=== PATIENT | female | born 1990 | race Caucasian/White ===

== ENCOUNTER 2016-08-27 19:03 | Emergency (ER) | payer OTHER ==
[~2016-08-27] VITALS: Ht 170.2 cm; Wt 65.0 kg
[2016-08-27 19:09] VITALS: Ht 170.2 cm; Wt 65.0 kg
[2016-08-27] MEDS ORDERED: ONDANSETRON (ODT) 4 MG TAB ODT STA (19:36)
--- NOTE | 2016-08-27 19:54 | ERD ---
ER Documentation Chief Complaint Date/Time DATE: 08/27/16 TIME: 19:42 Chief Complaint Pt reports fall from standing with +LOC, pt tenderness to neck, back pain HPI 26 year old female presents here in the emergency department for complaint of lower back pain, neck pain, headache, dizziness, right ankle pain after falling today. Patient was walking, tripped on a can, landed on the back. Patient describes the pain as throbbing pain, 6/10 scale, worse upon movement of the affected joints. Shouldn't denies any numbness or tingling. Patient denies any deformity. Patient is unable to move the neck because of pain. Patient denies taking any medications to but symptoms. Patient denies any loss of consciousness. Patient cannot remember the what happened. ROS All systems reviewed and are negative except as per history of present illness. Medications Home Meds Reported Medications [none] Unknown Strength No Conflict Check 08/27/16 Allergies Allergies: Coded Allergies: No Known Allergy (Unverified , 08/27/16) PMhx/Soc Medical and Surgical Hx: pt denies Medical Hx, pt denies Surgical Hx History of Surgery: No (DENIES MEDICAL AND SURGICAL HX.) Hx Alcohol Use: No Hx Substance Use: No Hx Tobacco Use: No Smoking Status: Never smoker FmHx Family History: No coronary disease, No diabetes, No other Physical Exam Vitals Vital Signs Date Time Temp Pulse Resp B/P Pulse Ox O2 Delivery O2 Flow Rate FiO2 08/27/16 19:09 98.8 105 24 138/98 98 Physical Exam GENERAL: The patient is well developed and appropriate for usual state of health, in no apparent distress. CHEST: Clear to auscultation bilaterally. There are no rales, wheezes or rhonchi. HEART: Regular rate and rhythm. No murmurs, clicks, rubs or gallops. No S3 or S4. ABDOMEN: Soft, nontender and nondistended. Good bowel sounds. No rebound or guarding. No gross peritonitis. No gross organomegaly or masses. No Orozco sign or McBurney point tenderness. BACK: No midline or flank tenderness. Muscle spasms noted in the paraspinal aspect of cervical and lower lumbar spine. EXTREMITIES: Able to do full range of motion of her ankle without any restriction, no tenderness on palpation on the lateral and medial malleolus, no deformity noted. Equal pulses bilaterally. There is no peripheral clubbing, cyanosis or edema. No focal swelling or erythema. Full range of motion. Grossly neurovascularly intact. NEURO: Alert and oriented. Cranial nerves 2-12 intact. Motor strength in all 4 extremities with 5/5 strength. Sensation grossly intact. Normal speech and gait. Negative pronator drift. Bilateral eyes are PERRL is intact. SKIN: There is no apparent rash or petechia. The skin is warm and dry. HEMATOLOGIC AND LYMPHATIC: There is no evidence of excessive bruising or lymphedema. No gross cervical, axillary, or inguinal lymphadenopathy. Results 24 hrs Current Medications Medications (Trade) Dose Ordered Sig/Angeles Route PRN Reason Start Time Stop Time Status Last Admin Dose Admin Morphine Sulfate (morphine) 4 mg ONCE ONCE IM 08/27/16 20:00 08/27/16 20:01 DC 08/27/16 20:03 Diazepam (Valium) 5 mg ONCE ONCE IM 08/27/16 20:00 08/27/16 20:01 DC 08/27/16 20:08 Ondansetron HCl (Zofran Odt) 4 mg ONCE STAT ODT 08/27/16 19:36 08/27/16 19:41 DC 08/27/16 20:02 Patient was given medication for pain here in emergency department, after treatment, patient verbalized feeling much better. Patient's pain is improved. Valium was given here in emergency department. Zofran was given here in emergency department. Tolerated medication well. PROCEDURE: CT Cervical Spine without contrast. CLINICAL INDICATION: Trauma. Neck pain. TECHNIQUE: Helical axial sections were obtained through the cervical spine without intravenous contrast enhancement. Sagittal and coronal reformatted images were accomplished using the data from the axial images. Total exam DLP is 450.97 mGy-cm. CTDIvol is 22.14 mGy. One or more of the following dose reduction techniques were used: Automated exposure control, adjustment of the mA and/or kV according to patient size, use of iterative reconstruction technique. COMPARISON: No prior studies are available for comparison. FINDINGS: There is normal stature and alignment of the vertebrae. There is a sagittal lucency through the left lamina of C3 seen only on image 4- 44. This may represent a nondisplaced fracture. There is no other fracture. The disk height is normal. There is no lytic or blastic lesion. The paravertebral soft tissues are normal. IMPRESSION: 1. Possible nondisplaced fracture of the left lamina of C3. As this is only visualized on 1 of the axial images, this may be due to artifact. Follow-up CT scan advised. 2. Otherwise unremarkable study. RPTAT: QQ .Albert Bunch MD, MD Date Time Electronically viewed and signed by .Albert Bunch MD, MD on 08/27/2016 21:13 .R/ CC: PASTORA GUERRERO NP PROCEDURE: CT Lumbar Spine. CLINICAL INDICATION: Trauma. Back pain. TECHNIQUE: The study was performed on a multidetector CT scanner. Spiral axial 1 mm images were obtained through the lumbar spine and reformatted at 2.5 mm slice thickness. Sagittal and coronal reformations were created from the raw axial data. The images were reviewed on a PACS workstation. Total exam DLP is July 1934 0.00 mGy-cm. CTDIvol is 9.27 mGy. One or more of the following dose reduction techniques were used: Automated exposure control, adjustment of the mA and/or kV according to patient size, use of iterative reconstruction technique. COMPARISON: No prior studies are available for comparison. FINDINGS: The vertebral bodies demonstrate normal height, alignment and osseous mineralization. There is no fracture or malalignment. The abdominal aorta is unremarkable. There is a nonobstructing 0.2 cm calculus in the upper to mid left kidney. The visualized portions of the kidneys are otherwise unremarkable. T12-L1: The disc and neuroforamina are unremarkable. L1-L2: The disc and neuroforamina are unremarkable. L2-L3: The disc and neuroforamina are unremarkable. L3-L4: The disc and neuroforamina are unremarkable. L4-L5: The disc and neuroforamina are unremarkable. L5-S1: The disc and neuroforamina are unremarkable. IMPRESSION: 1. Nonobstructing 0.2 cm calculus in the upper to mid left kidney. 2. No fracture or malalignment. 3. Otherwise unremarkable CT scan of the lumbar spine. RPTAT: QQ .Albert Bunch MD, Date Time Electronically viewed and signed by .Albert Bunch MD, on 08/27/2016 21:17 .R/ CC: PASTORA GUERRERO ROLL [employer]OUR GRINDER PROCEDURE: CT Brain without contrast. CLINICAL INDICATION: Trauma. Headache. TECHNIQUE: A CT of the brain without contrast was performed utilizing axial sections from the skull base through the vertex. The patient was scanned without intravenous contrast enhancement. Sagittal and coronal reformatted images were obtained using the data from the axial images. Total exam DLP is 720.23 mGy-cm. CTDIvol is 40.63 mGy. One or more of the following dose reduction techniques were used: Automated exposure control, adjustment of the mA and/or kV according to patient size, use of iterative reconstruction technique. COMPARISON: None available FINDINGS: There is normal omalley-white matter differentiation. The ventricles and cisterns are normal. There is no intracranial hemorrhage or space-occupying lesion. There is no skull fracture or lytic lesion. IMPRESSION: 1. Normal noncontrast CT scan of the brain. 2. No intracranial hemorrhage. RPTAT: QQ .Albert Bunch MD, Date Time Electronically viewed and signed by .Albert Bunch MD, on 08/27/2016 21:06 .R/ CC: PASTORA GUERRERO ROLL [employer] GRINDER PROCEDURE: XR Right Ankle. CLINICAL INDICATION: Trauma. Pain. TECHNIQUE: Three views of the right ankle are available for review COMPARISON: None available FINDINGS: There are no fractures. Joint relationships are maintained. Ankle mortise is intact. Bone mineralization is within normal limits. Soft tissues are unremarkable. IMPRESSION: 1. No acute abnormality. RPTAT: HMVK .Jorge Reveles MD, MD Date Time Electronically viewed and signed by .Jorge Reveles MD, on 08/27/2016 21:33 .K/ CC: PASTORA GUERRERO ROLL [employer] GRINDER Procedures/MDM After receiving patients xray report, an Trino wrap was applied on the patients right ankle. After application of the Trino wrap, patient has intact sensation and circulation on distal area of the affected joint. Patient does not complain of numbness or tingling after application of the Trino wrap. Patient tolerated procedure well. A hard collar was consistently on patient during the whole visits here in emergency department. Medical Decision Making: Patient's back pain is most likely consistent with a contusion or a strain, patient's neck pain most likely is consistent with a cervical fracture seen in the CT scan. There is no suspicion for neurovascular compromise. Patient has intact sensation and circulation of the affected extremity. There is low suspicion for septic arthritis. Patient does not have any fever. Patient's last of consciousness at the head injury consistent with a head concussion. There is low suspicion for neurological emergencies at this time since patients neurologic exam is normal. Patient did not have any altered level consciousness, vomiting, changes in balance or memory after incident. Patients CT scan of the head does not show any neurological emergencies at this time. Patient's ankle pain consistent with a sprain, no symptoms of any fractures. No symptoms of any other neurovascular compromise. X-ray does not show any fracture or dislocation. I discussed this case with my attending physician, Dr. Lamb, recommended to consult neurosurgeon, for evaluation and treatment, I spoke with , neurosurgeon on-call, will evaluate patient in the morning, patient will be admitted to the hospital for further evaluation and management. Patient's pain is controlled at this time. Patient's on the hard collar. I spoke with Dr. Paz who will admit the patient to the hospital. I spoke again with the patient, patient refuses to be admitted at this time, was to go to a different hospital. I discussed that complications including paralysis, cervical fracture complications, with this, patient continues to want to go to a different hospital, patient is signing AGAINST MEDICAL ADVICE, she signed the form with, was witnessed by the nurse, patient was advised of all the risks, patient will go via auto with boyfriend. Departure Diagnosis: Primary Impression: Head concussion Encounter type: initial encounter Loss of consciousness presence/duration: without LOC Qualified Code: S06.0X0A - Head concussion, without LOC, initial encounter Additional Impressions: Cervical spine fracture Encounter type: initial encounter Cervical vertebra fracture level: C3 Fracture type: closed Fracture morphology: unspecified fracture morphology Fracture alignment: nondisplaced Qualified Code: S12.201A - Closed nondisplaced fracture of third cervical vertebra, unspecified fracture morphology, initial encounter Ankle sprain Encounter type: initial encounter Involved ligament of ankle: unspecified ligament Laterality: right Qualified Code: S93.401A - Sprain of right ankle , unspecified ligament, initial encounter Back pain Back pain location: low back pain Chronicity: acute Back pain laterality: right Sciatica presence: without sciatica Qualified Code: M54.5 - Acute right-sided low back pain without sciatica Condition: PASTORA Cox NP Aug 27, 2016 19:52
[2016-08-27] MEDS ORDERED: DIAZEPAM 5 MG/ML SYG IM ONE (20:00)
[2016-08-27] MEDS ORDERED: morphine 10 MG INJ IM ONE (20:00)
--- NOTE | 2016-08-27 21:06 | RADRPT ---
PROCEDURE: CT Brain without contrast. CLINICAL INDICATION: Trauma. Headache. TECHNIQUE: A CT of the brain without contrast was performed utilizing axial sections from the skul l base through the vertex. The patient was scanned without intravenous contrast enhancement. Sagitta l and coronal reformatted images were obtained using the data from the axial images. Total exam DLP is 720.23 mGy-cm. CTDIvol is 40.63 mGy. One or more of the following dose reduction techniques we re used: Automated exposure control, adjustment of the mA and/or kV according to patient size, use o f iterative reconstruction technique. COMPARISON: None available FINDINGS: There is normal omalley-white matter differentiation. The ventricles and cisterns are normal. There is no intracranial hemorrhage or space-occupying lesion. There is no skull fracture or lytic lesion. IMPRESSION: 1. Normal noncontrast CT scan of the brain. 2. No intracranial hemorrhage. RPTAT: QQ .Albert Bunch MD, MD Date Time Electronically viewed and signed by .Albert Bunch MD, MD on 08/27/2016 21:06 .R/
--- NOTE | 2016-08-27 21:14 | RADRPT ---
PROCEDURE: CT Cervical Spine without contrast. CLINICAL INDICATION: Trauma. Neck pain. TECHNIQUE: Helical axial sections were obtained through the cervical spine without intravenous con trast enhancement. Sagittal and coronal reformatted images were accomplished using the data from th e axial images. Total exam DLP is 450.97 mGy-cm. CTDIvol is 22.14 mGy. One or more of the followi ng dose reduction techniques were used: Automated exposure control, adjustment of the mA and/or kV a ccording to patient size, use of iterative reconstruction technique. COMPARISON: No prior studies are available for comparison. FINDINGS: There is normal stature and alignment of the vertebrae. There is a sagittal lucency through the left lamina of C3 seen only on image 4-44. This may represe nt a nondisplaced fracture. There is no other fracture. The disk height is normal. There is no lytic or blastic lesion. The paravertebral soft tissues are normal. IMPRESSION: 1. Possible nondisplaced fracture of the left lamina of C3. As this is only visualized on 1 of the axial images, this may be due to artifact. Follow-up CT scan advised. 2. Otherwise unremarkable study. RPTAT: QQ .Albert Bunch MD, MD Date Time Electronically viewed and signed by .Albert Bunch MD, on 08/27/2016 21:13 .R/
--- NOTE | 2016-08-27 21:17 | RADRPT ---
PROCEDURE: CT Lumbar Spine. CLINICAL INDICATION: Trauma. Back pain. TECHNIQUE: The study was performed on a multidetector CT scanner. Spiral axial 1 mm images were o btained through the lumbar spine and reformatted at 2.5 mm slice thickness. Sagittal and coronal ref ormations were created from the raw axial data. The images were reviewed on a PACS workstation. Tota l exam DLP is July 1934 0.00 mGy-cm. CTDIvol is 9.27 mGy. One or more of the following dose reduc tion techniques were used: Automated exposure control, adjustment of the mA and/or kV according to p atient size, use of iterative reconstruction technique. COMPARISON: No prior studies are available for comparison. FINDINGS: The vertebral bodies demonstrate normal height, alignment and osseous mineralization. There is no f racture or malalignment. The abdominal aorta is unremarkable. There is a nonobstructing 0.2 cm calc ulus in the upper to mid left kidney. The visualized portions of the kidneys are otherwise unremark able. T12-L1: The disc and neuroforamina are unremarkable. L1-L2: The disc and neuroforamina are unremarkable. L2-L3: The disc and neuroforamina are unremarkable. L3-L4: The disc and neuroforamina are unremarkable. L4-L5: The disc and neuroforamina are unremarkable. L5-S1: The disc and neuroforamina are unremarkable. IMPRESSION: 1. Nonobstructing 0.2 cm calculus in the upper to mid left kidney. 2. No fracture or malalignment. 3. Otherwise unremarkable CT scan of the lumbar spine. RPTAT: QQ .Albert Bunch MD, Date Time Electronically viewed and signed by .Albert Bunch MD, on 08/27/2016 21:17 .R/
--- NOTE | 2016-08-27 21:33 | RADRPT ---
PROCEDURE: XR Right Ankle. CLINICAL INDICATION: Trauma. Pain. TECHNIQUE: Three views of the right ankle are available for review COMPARISON: None available FINDINGS: There are no fractures. Joint relationships are maintained. Ankle mortise is intact. Bone mineral ization is within normal limits. Soft tissues are unremarkable. IMPRESSION: 1. No acute abnormality. RPTAT: HMVK .Jorge Reveles MD, Date Time Electronically viewed and signed by .Jorge Reveles MD, on 08/27/2016 21:33 .K/
[2016-08-28] MEDS ORDERED: ONDANSETRON 4 MG INJ IV PRN
[2016-08-28] MEDS ORDERED: DOCUSATE SODIUM 100 MG CAP PO PRN
[2016-08-28] MEDS ORDERED: HYDROCODONE/APAP (5/325) TAB PO PRN ×2
[2016-08-28] MEDS ORDERED: NACL 0.9% 3 ML SYG IV SCH
[2016-08-28] MEDS ORDERED: BISACODYL (EC) 5 MG TAB PO PRN
[2016-08-28] MEDS ORDERED: morphine 2 MG INJ IV PRN
--- NOTE | 2016-08-28 00:15 | HP ---
Date/Time of Note Date/Time of Note DATE: 08/28/16 TIME: 00:14 Assessment/Plan Assessment/Plan Chief Complaint/Hosp Course Was called by the ED to admit the patient for Neck pain. However, I received another call a short while after that the patient had decied to leave Against Medical Advice, KUMAR. I was not able to see the patient. Problems: HPI/ROS Admit Date/Time Admit Date/Time PMH/Family/Social Social History Smoking Status: Never smoker Exam/Review of Systems Vital Signs Vitals Vital Signs Date Time Temp Pulse Resp B/P Pulse Ox O2 Delivery O2 Flow Rate FiO2 08/27/16 19:09 98.8 105 24 138/98 98 Medications Medications Current Medications Ondansetron HCl (Zofran Inj) 4 mg Q6H PRN IV NAUSEA AND/OR VOMITING; Start at 00:00 Acetaminophen/ Hydrocodone Bitart ([place] (5/325)) 1 tab Q6H PRN PO MODERATE PAIN LEVEL 4-6; Start 08/28/16 at 00:00 Acetaminophen/ Hydrocodone Bitart ([place] (5/325)) 2 tab Q6H PRN PO SEVERE PAIN LEVEL 7-10; Start 08/28/16 at 00:00 Morphine Sulfate (morphine) 2 mg Q4H PRN IV SEVERE PAIN LEVEL 7-10; Start 08/28 at 00:00 Docusate Sodium (Colace) 100 mg Q12H PRN PO CONSTIPATION; Start 08/28/16 at 00: 00 Bisacodyl (Dulcolax) 5 mg DAILY PRN PO CONSTIPATION; Start 08/28/16 at 00:00 Pantoprazole (Protonix Iv) 40 mg DAILY@06 IV ; Start 08/28/16 at 06:00 THA OKEEFE Aug 28, 2016 00:15
[2016-08-28] MEDS ORDERED: PANTOPRAZOLE 40 MG INJ IV SCH (06:00)
== END 2016-08-28 00:22 | disposition left against medical advice (07) ==
LOC: FTE 19:03
DX: S06.0X0A Concussion without loss of consciousness, initial encounter (principal); S12.201A Unspecified nondisplaced fracture of third cervical vertebra, initial encounter for closed fracture; S93.401A Sprain of unspecified ligament of right ankle, initial encounter; S39.92XA Unspecified injury of lower back, initial encounter; W01.0XXA Fall on same level from slipping, tripping and stumbling without subsequent striking against object, initial encounter; Y92.9 Unspecified place or not applicable
CPT/HCPCS: 70450; 72125; 72131; 73610; 96372; J2270; J3360; Z7502; Z7610

== ENCOUNTER 2017-02-02 15:21 | Emergency (ER) | END 2017-02-02 19:47 | disposition home or self-care (01) ==

== ENCOUNTER 2017-08-07 13:41 | Emergency (ER) | END 2017-08-07 18:59 | disposition home or self-care (01) ==

== ENCOUNTER 2017-12-14 10:53 | Emergency (ER) | END 2017-12-14 13:41 | disposition home or self-care (01) ==

== ENCOUNTER 2018-02-10 14:47 | Emergency (ER) | END 2018-02-10 18:17 | disposition home or self-care (01) ==

== ENCOUNTER 2018-04-21 15:38 | Emergency (ER) | payer SELFPAY ==
[~2018-04-21] VITALS: Wt 66.1 kg
[~2018-04-21 15:38] MED LIST: AMOX1TAB10 PO; DEXA6TAB2 PO; DIPH12.59 PO; IBUP-1542 PO; NAPR-985 PO; PENI500T PO; PRED20TA PO
[2018-04-21] MEDS ORDERED: KETOROLAC 30 MG INJ IM STA (17:56)
[2018-04-21] MEDS ORDERED: DEXAMETHASONE 10 MG/ML 1 ML INJ IM ONE (18:00)
[2018-04-21] MEDS ORDERED: AMOX1TAB10 PO (18:13)
[2018-04-21] MEDS ORDERED: IBUP-1542 PO (18:13)
[2018-04-21] MEDS ORDERED: PRED20TA PO (18:13)
[2018-04-21] MEDS ORDERED: CEFTRIAXONE 1 GM INJ IM ONE (18:30)
--- NOTE | 2018-04-21 19:08 | ERD ---
ER Documentation Chief Complaint Chief Complaint SORE THROAT X 1 DAY HPI Patient is a 27-year-old female with kidney stones who presents with a sore throat. The patient has had voice changes. She said that she woke up like this today. She has no fevers. Upon review of old medical record she has multiple visits with similar complaints in the past. She has had CT scans in the past. She said that she has had the same situations in the past. ROS All systems reviewed and are negative except as per history of present illness. Medications Home Meds Active Scripts Ibuprofen* (Motrin*) 600 Mg Tab, 600 MG PO Q6H PRN for PAIN AND OR ELEVATED T EMP, #30 TAB Prov:MARNI BONILLA MD 04/21/18 Prednisone* (Prednisone*) 20 Mg Tab, 60 MG PO DAILY for 3 Days, TAB Prov:MARNI BONILLA MD 04/21/18 Amoxicillin/Potassium Clav (Amox-Clav 875-125 mg Tablet) 875-125 mg Tab, 1 TAB PO BID for 7 Days, #14 TAB Prov:MARNI BONILLA MD 04/21/18 Naproxen* (Naprosyn*) 500 Mg Tablet, 500 MG PO BID PRN for PAIN AND/OR INFLAMMATION, #30 TAB Prov:STACEY YU PA-C 02/10/18 Penicillin V Potassium* (Penicillin V K*) 500 Mg Tab, 500 MG PO QID for 10 Days, TAB Prov:STACEY YU PA-C 02/10/18 Prednisone* (Prednisone*) 20 Mg Tab, 40 MG PO DAILY for 4 Days, TAB Prov:STACEY YU PA-C 02/10/18 Diphenhydramine Hcl* (Diphenhydramine Hcl*) 12.5 Mg/5 Ml Elixir, 10 ML PO Q8 for 3 Days, #4 OZ Prov:JENNA GORDON MD 12/14/17 Prednisone* (Prednisone*) 20 Mg Tab, 60 MG PO DAILY for 5 Days, TAB Prov:JENNA GORDON MD 12/14/17 Amoxicillin/Potassium Clav (Amox-Clav 875-125 mg Tablet) 875-125 mg Tab, 1 TAB PO BID for 7 Days, #14 TAB Prov:JENNA GORDON MD 12/14/17 Ibuprofen* (Motrin*) 600 Mg Tab, 600 MG PO Q6H PRN for PAIN AND OR ELEVATED TEMP, #30 TAB Prov:RADHA MONTEIRO MD 08/07/17 Dexamethasone* (Dexamethasone*) 6 Mg Tablet, 10 MG PO ONCE, #1 TAB Take tomorrow evening Prov:RADHA MONTEIRO MD 08/07/17 Amoxicillin/Potassium Clav (Amox-Clav 875-125 mg Tablet) 875-125 mg Tab, 1 TAB PO BID for 7 Days, #14 TAB Prov:RADHA MONTEIRO MD 08/07/17 Allergies Allergies: Coded Allergies: acetaminophen (Verified Allergy, Unknown, 08/07/17) oxycodone (Verified Allergy, Unknown, 08/07/17) PMhx/Soc History of Surgery: No (DENIES MEDICAL AND SURGICAL HX.) Anesthesia Reaction: No Hx Neurological Disorder: No Hx Respiratory Disorders: No Hx Cardiac Disorders: No Hx Psychiatric Problems: No Hx Miscellaneous Medical Probl: Yes (Pharyngitis) Hx Alcohol Use: No Hx Substance Use: No Hx Tobacco Use: Yes Smoking Status: Never smoker FmHx Family History: diabetes Physical Exam Vitals Vital Signs Date Temp Pulse Resp B/P (MAP) Pulse Ox O2 O2 Flow FiO2 Time Delivery Rate 04/21/18 98.1 98 18 136/84 99 15:51 (101) Physical Exam Const: No acute distress Head: Atraumatic Eyes: Normal Conjunctiva ENT: Hot potato voice, no stridor over the neck, bilateral tonsillar erythema and swelling without peritonsillar abscess Neck: Full range of motion. No meningismus. Resp: Clear to auscultation bilaterally Cardio: Regular rate and rhythm, no murmurs Abd: Soft, non tender, non distended. Normal bowel sounds Skin: No petechiae or rashes Back: No midline or flank tenderness Ext: No cyanosis, or edema Neur: Awake and alert Psych: Normal Mood and Affect Results 24 hrs Laboratory Tests Test 04/21/18 18:17 Bedside Urine pH (LAB) 8.0 Bedside Urine Protein (LAB) Negative Bedside Urine Glucose (UA) Negative Bedside Urine Ketones (LAB) Negative Bedside Urine Blood Negative Bedside Urine Nitrite (LAB) Negative Bedside Urine Leukocyte Esterase (L Negative Current Medications Medications Dose Sig/Angeles Start Time Status Last (Trade) Ordered Route PRN Stop Time Admin Dose Reason Admin 10 mg ONCE ONCE 04/21/18 DC Dexamethasone IM 18:00 04/21/18 (Decadron) 18:01 Ketorolac 30 mg ONCE STAT 04/21/18 DC Tromethamine IM 17:56 04/21/18 (Toradol) 17:57 Ceftriaxone 1 gm ONCE ONCE 04/21/18 DC Sodium IM 18:30 04/21/18 (Rocephin) 18:31 Procedures/MDM Patient is a 27-year-old female with who presents with a sore throat and voice changes. There is no sign of peritonsillar abscess. There is no stridor. I did speak with Dr. Plasencia the ENT doctor auto inspection specialist who said that this is an acute tonsillitis but since she is able to breathe and swallow does not require admission or emergent surgery. I would hold off on doing a CT scan of the neck as she has had multiple CT scans in the past. I am concerned about the risk of radiation. The patient was given ceftriaxone IM, Toradol IM, and Decadron IM. Dr. Plasencia recommended Augmentin and 3 more days of prednisone. The patient will be discharged and can return for any worsening symptoms. She is otherwise well- appearing and well-hydrated. I doubt peritonsillar abscess, retropharyngeal abscess, or epiglottitis. Departure Diagnosis: Primary Impression: Tonsillitis Additional Impression: Sore throat Condition: Fair Patient Instructions: Self-Care for Sore Throats, Peritonsillar Infection Abx Only, No I And D Referrals: JAMI PLASENCIA MD Additional Instructions: SPECIALIST: YOU HAVE A MEDICAL CONDITION WHICH REQUIRES YOU TO SEE A SPECIALIST WITHIN THE NEXT 1-2 DAYS. PLEASE FOLLOW UP WITH YOUR PRIMARY PHYSICIAN FOR REFFERAL.IF YOU DO NOT HAVE A PRIMARY CARE PHYSICIAN AND/OR YOU CAN NOT AFFORD TO SEE A PHYSICIAN THE FOLLOWING RESOURCES HAVE BEEN SUPPLIED TO YOU. IT IS YOUR RESPONSIBILITY TO BE SEEN BY THE SPECIALIST MARNI BONILLA MD Apr 21, 2018 19:08
[2018-04-21 19:17] VITALS: BP 114/89; PULSE 91; RESP 18
== END 2018-04-21 19:18 | disposition home or self-care (01) ==
LOC: FTE 15:38 → E/R 19:18
DX: J03.90 Acute tonsillitis, unspecified (principal)
CPT/HCPCS: 81003; 96372; 99284; J0696; J1100; J1885

== ENCOUNTER 2018-05-16 22:31 | Emergency (ER) | payer SELFPAY ==
[~2018-05-16] VITALS: Ht 170.2 cm; Wt 69.8 kg
[2018-05-16 22:37] VITALS: BP 147/99; PULSE 107; RESP 20; Ht 170.2 cm; Wt 69.8 kg
--- NOTE | 2018-05-17 02:05 | ERD ---
ER Documentation Chief Complaint Chief Complaint SWEELING IN THROAT X'S 3 DAYS; NO AIRWAY RESTRICTION. HX OF SAME HPI 27-year-old female, well-known to our emergency department for recurrent episodes of acute pharyngitis, presents the emergency department, complaining of 3 days with sore throat. The patient denies fever, no chills, no difficulty breathing, no difficulty swallowing. ROS All systems reviewed and are negative except as per history of present illness. Medications Home Meds Active Scripts Prednisolone* (Prelone*) 15 Mg/5 Ml Solution, 10 ML PO DAILY for 5 Days, BOTTLE Prov:JENNA GORDON MD 05/17/18 Ibuprofen* (Motrin*) 600 Mg Tab, 600 MG PO Q6H PRN for PAIN AND OR ELEVATED TEMP, #30 TAB Prov:MARNI BONILLA MD 04/21/18 Prednisone* (Prednisone*) 20 Mg Tab, 60 MG PO DAILY for 3 Days, TAB Prov:MARNI BONILLA MD 04/21/18 Amoxicillin/Potassium Clav (Amox-Clav 875-125 mg Tablet) 875-125 mg Tab, 1 TAB PO BID for 7 Days, #14 TAB Prov:MARNI BONILLA MD 04/21/18 Naproxen* (Naprosyn*) 500 Mg Tablet, 500 MG PO BID PRN for PAIN AND/OR INFLAMMATION, #30 TAB Prov:STACEY YU PA-C 02/10/18 Penicillin V Potassium* (Penicillin V K*) 500 Mg Tab, 500 MG PO QID for 10 Days, TAB Prov:STACEY YU PA-C 02/10/18 Prednisone* (Prednisone*) 20 Mg Tab, 40 MG PO DAILY for 4 Days, TAB Prov:STACEY YU PA-C 02/10/18 Diphenhydramine Hcl* (Diphenhydramine Hcl*) 12.5 Mg/5 Ml Elixir, 10 ML PO Q8 for 3 Days, #4 OZ Prov:JENNA GORDON MD 12/14/17 Prednisone* (Prednisone*) 20 Mg Tab, 60 MG PO DAILY for 5 Days, TAB Prov:JENNA GORDON MD 12/14/17 Amoxicillin/Potassium Clav (Amox-Clav 875-125 mg Tablet) 875-125 mg Tab, 1 TAB PO BID for 7 Days, #14 TAB Prov:JENNA GORDON MD 12/14/17 Ibuprofen* (Motrin*) 600 Mg Tab, 600 MG PO Q6H PRN for PAIN AND OR ELEVATED TEMP, #30 TAB Prov:RADHA MONTEIRO MD 08/07/17 Dexamethasone* (Dexamethasone*) 6 Mg Tablet, 10 MG PO ONCE, #1 TAB Take tomorrow evening Prov:RADHA MONTEIRO MD 08/07/17 Amoxicillin/Potassium Clav (Amox-Clav 875-125 mg Tablet) 875-125 mg Tab, 1 TAB PO BID for 7 Days, #14 TAB Prov:RADHA MONTEIRO MD 08/07/17 Allergies Allergies: Coded Allergies: acetaminophen (Verified Allergy, Unknown, 08/07/17) oxycodone (Verified Allergy, Unknown, 08/07/17) PMhx/Soc History of Surgery: No (DENIES MEDICAL AND SURGICAL HX.) Anesthesia Reaction: No Hx Neurological Disorder: No Hx Respiratory Disorders: No Hx Cardiac Disorders: No Hx Psychiatric Problems: No Hx Miscellaneous Medical Probl: Yes (Pharyngitis) Hx Alcohol Use: No Hx Substance Use: No Hx Tobacco Use: Yes Smoking Status: Current every day smoker Physical Exam Vitals Vital Signs Date Temp Pulse Resp B/P (MAP) Pulse Ox O2 O2 Flow FiO2 Time Delivery Rate 05/17/18 59 20 100 21 02:23 05/16/18 98.1 107 20 147/99 100 22:37 (115) Physical Exam Patient alert, oriented, vital signs stable. HEENT: Normocephalic, atraumatic. EYES: PERRLA, EOMI, Sclera and conjunctiva appear normal. EARS: Canals clear, tympanic membranes WNL. THROAT: Erythema and edema of the oropharynx, normal tonsils without exudates. NECK: Supple, No lymphadenopathy. Full ROM without pain or tenderness. HEART: RRR, no rubs, murmurs, clicks or gallops. LUNGS: Clear to auscultation. ABDOMEN: Soft, non-tender without masses or hepatosplenomegaly. EXTREMITIES: No edema bilaterally. BACK: Full ROM, no deformity, normal back exam NEURO: Cranial nerves grossly intact, no motor or sensory deficit SKIN: No rashes, no petechia. Result Diagram: 05/17/1821805/17/18218 Results 24 hrs Laboratory Tests Test 05/17/18 02:19 05/17/18 02:20 White Blood Count 12.8 10^3/ul Red Blood Count 4.83 10^6/ul Hemoglobin 14.0 g/dl Hematocrit 43.4 % Mean Corpuscular Volume 89.9 fl Mean Corpuscular Hemoglobin 29.0 pg Mean Corpuscular Hemoglobin Concent 32.3 g/dl Red Cell Distribution Width 13.3 % Platelet Count 310 10^3/UL Mean Platelet Volume 11.1 fl Immature Granulocytes % 0.400 % Neutrophils % 52.8 % Lymphocytes % 35.4 % Monocytes % 8.9 % Eosinophils % 2.0 % Basophils % 0.5 % Nucleated Red Blood Cells % 0.0 /100WBC Immature Granulocytes # 0.050 10^3/ul Neutrophils # 6.7 10^3/ul Lymphocytes # 4.5 10^3/ul Monocytes # 1.1 10^3/ul Eosinophils # 0.3 10^3/ul Basophils # 0.1 10^3/ul Nucleated Red Blood Cells # 0.0 10^3/ul Sodium Level 142 mmol/L Potassium Level 3.8 mmol/L Chloride Level 109 mmol/L Carbon Dioxide Level 25 mmol/L Anion Gap 8 Blood Urea Nitrogen 21 mg/dl Creatinine 0.71 mg/dl Est Glomerular Filtrat Rate mL/min > 60 mL/min Glucose Level 88 mg/dl Calcium Level 9.5 mg/dl Thyroid Stimulating Hormone (TSH) 1.350 MIU/L Current Medications Medications Dose Sig/Angeles Start Time Status Last (Trade) Ordered Route PRN Stop Time Admin Dose Reason Admin 10 mg ONCE ONCE 05/17/18 DC 05/17/18 Dexamethasone IV 02:30 05/17/18 02:34 (Decadron) 02:31 Epinephrine 0.5 ml ONCE ONCE 05/17/18 DC 05/17/18 HHN 02:30 05/17/18 02:23 (Racepinephri 02:31 ne 2.25% (Neb)) Ketorolac 30 mg ONCE STAT 05/17/18 DC 05/17/18 Tromethamine IV 02:32 05/17/18 02:38 (Toradol) 02:35 Procedures/MDM Differential diagnosis include but not limited to: Tonsillar/pharyngeal infection bacterial/viral/fungal, parotitis, allergies, GERD. Less likely peritonsillar abscess, retropharyngeal abscess. No signs of upper respiratory obstruction Physical examination and clinical presentation consistent most likely with acute pharyngitis, no evidence of bacterial pharyngitis, therefore, antibiotics not indicated at this time. During the ED course the patient remained stable. Clinical impression discussed with the patient who agrees with management. The patient is stable to be treated outpatient and will be discharged home. Some side effects of prescribed medications (headache, rash, nausea, vomiting, diarrhea, drowsiness, habituation, bleeding, hypertension, interactions with other medications) were reviewed. The patient was instructed to follow up with the primary care provider in the next 48h. If symptoms persist, worsen or new symptoms develop, then patient should return to the ED immediately. Disclaimer: Inadvertent spelling and grammatical errors are likely due to EHR/dictation software use and do not reflect on the overall quality of patient care. Also, please note that the electronic time recorded on this note does not necessarily reflect the actual time of the patient encounter. Departure Diagnosis: Primary Impression: Pharyngitis Condition: Stable Additional Instructions: Thank you very much for allowing us to participate in your care. Your health and safety is our top priority at [facility]. Call your primary care doctor TOMORROW for an appointment during the next 2-4 days and bring all the information and medications prescribed. Have prescriptions filled and follow precisely the directions on the label. If the symptoms get worse and your provider is unavailable, return to the Emergency Department immediately. JENNA GORDON MD May 17, 2018 02:05
[2018-05-17] MEDS ORDERED: RACEPINEPHRINE 2.25%(NEB) 0.5 ML AMP HHN ONE (02:30)
[2018-05-17] MEDS ORDERED: DEXAMETHASONE 10 MG/ML 1 ML INJ IV ONE (02:30)
[2018-05-17] MEDS ORDERED: KETOROLAC 30 MG INJ IV STA (02:32)
[2018-05-17] MEDS ORDERED: PREL60L PO (03:40)
== END 2018-05-17 03:45 | disposition home or self-care (01) ==
LOC: FTE 22:31
DX: J02.9 Acute pharyngitis, unspecified (principal)
CPT/HCPCS: 70360; 80048; 84443; 85025; 87880; J1100; J1885; 36415; 96374; 96375

== ENCOUNTER 2018-09-24 16:32 | Emergency (ER) | payer OTHER ==
[~2018-09-24] VITALS: Ht 170.2 cm; Wt 67.9 kg
[~2018-09-24 16:32] MED LIST changes: +IBUP-1561 PO; +PREL60L PO
[2018-09-24 16:45] VITALS: BP 127/85; PULSE 96; RESP 20; Ht 170.2 cm; Wt 67.9 kg
--- NOTE | 2018-09-24 17:41 | ERD ---
ER Documentation Chief Complaint Chief Complaint sore throat today HPI 28-year-old female, with history of recurrent tonsillitis, presents to the emergency department, complaining of acute onset of sore throat but no fever, no shortness of breath, no difficulty swallowing. ROS All systems reviewed and are negative except as per history of present illness. Medications Home Meds Active Scripts Prednisolone* (Prelone*) 15 Mg/5 Ml Solution, 10 ML PO DAILY for 5 Days, BOTTLE Prov:JENNA GORDON MD 05/17/18 Ibuprofen* (Motrin*) 600 Mg Tab, 600 MG PO Q6H PRN for PAIN AND OR ELEVATED TEMP, #30 TAB Prov:MARNI BONILLA MD 04/21/18 Prednisone* (Prednisone*) 20 Mg Tab, 60 MG PO DAILY for 3 Days, TAB Prov:MARNI BONILLA MD 04/21/18 Amoxicillin/Potassium Clav (Amox-Clav 875-125 mg Tablet) 875-125 mg Tab, 1 TAB PO BID for 7 Days, #14 TAB Prov:MARNI BONILLA MD 04/21/18 Naproxen* (Naprosyn*) 500 Mg Tablet, 500 MG PO BID PRN for PAIN AND/OR IN FLAMMATION, #30 TAB Prov:STACEY YU PA-C 02/10/18 Penicillin V Potassium* (Penicillin V K*) 500 Mg Tab, 500 MG PO QID for 10 Days, TAB Prov:STACEY YU PA-C 02/10/18 Prednisone* (Prednisone*) 20 Mg Tab, 40 MG PO DAILY for 4 Days, TAB Prov:STACEY YU PA-C 02/10/18 Diphenhydramine Hcl* (Diphenhydramine Hcl*) 12.5 Mg/5 Ml Elixir, 10 ML PO Q8 for 3 Days, #4 OZ Prov:JENNA GORDON MD 12/14/17 Prednisone* (Prednisone*) 20 Mg Tab, 60 MG PO DAILY for 5 Days, TAB Prov:JENNA GORDON MD 12/14/17 Amoxicillin/Potassium Clav (Amox-Clav 875-125 mg Tablet) 875-125 mg Tab, 1 TAB PO BID for 7 Days, #14 TAB Prov:JENNA GORDON MD 12/14/17 Ibuprofen* (Motrin*) 600 Mg Tab, 600 MG PO Q6H PRN for PAIN AND OR ELEVATED TEMP, #30 TAB Prov:RADHA MONTEIRO MD 08/07/17 Dexamethasone* (Dexamethasone*) 6 Mg Tablet, 10 MG PO ONCE, #1 TAB Take tomorrow evening Prov:RADHA MONTEIRO MD 08/07/17 Amoxicillin/Potassium Clav (Amox-Clav 875-125 mg Tablet) 875-125 mg Tab, 1 TAB PO BID for 7 Days, #14 TAB Prov:RADHA MONTEIRO MD 08/07/17 Allergies Allergies: Coded Allergies: acetaminophen (Verified Allergy, Unknown, 08/07/17) oxycodone (Verified Allergy, Unknown, 08/07/17) PMhx/Soc History of Surgery: No (DENIES MEDICAL AND SURGICAL HX.) Anesthesia Reaction: No Hx Neurological Disorder: No Hx Respiratory Disorders: No Hx Cardiac Disorders: No Hx Psychiatric Problems: No Hx Miscellaneous Medical Probl: Yes (Pharyngitis) Hx Alcohol Use: No Hx Substance Use: No Hx Tobacco Use: Yes FmHx Family History: No diabetes, No coronary disease Physical Exam Vitals Vital Signs Date Temp Pulse Resp B/P (MAP) Pulse Ox O2 O2 Flow FiO2 Time Delivery Rate 09/24/18 98.9 96 20 127/85 97 16:45 (99) Physical Exam Patient alert, oriented, no distress EYES: PERRLA, EOMI, injected sclerae EARS: Canals clear, erythematous tympanic membranes THROAT: Erythematous oropharynx with bilateral exudates NECK: Supple, + tender cervical lymphadenopathy. Full ROM without pain or tenderness. HEART: RRR, no rubs, murmurs, clicks or gallops. LUNGS: Bilateral rhonchi to auscultation. ABDOMEN: Soft, non-tender without masses or hepatosplenomegaly. EXTREMITIES: No edema bilaterally. BACK: Full ROM, no deformity, normal back exam NEURO: Cranial nerves grossly intact, no motor or sensory deficit Results 24 hrs Current Medications Medications Dose Sig/Angeles Start Time Status Last (Trade) Ordered Route PRN Stop Time Admin Dose Reason Admin 8 mg ONCE ONCE 09/24/18 Dexamethasone IM 18:00 (Decadron) 09/24/18 18:01 Procedures/MDM Differential diagnosis include but not limited to: Tonsillar/pharyngeal infection bacterial/viral/fungal, parotitis, allergies, GERD. Less likely peritonsillar abscess, retropharyngeal abscess. No signs of upper respiratory obstruction Physical examination and clinical presentation consistent most likely with acute tonsillitis. During the ED course the patient remained stable. Clinical impression discussed with the patient who agrees with management. The patient is stable to be treated outpatient and will be discharged home with a Rx for antibiotic and ibuprofen. Some side effects of prescribed medications (headache, rash, nausea, vomiting, diarrhea, drowsiness, habituation, bleeding, hypertension, interactions with other medications) were reviewed. The patient was instructed to follow up with the primary care provider in the next 48h. If symptoms persist, worsen or new symptoms develop, then patient should return to the ED immediately. Disclaimer: Inadvertent spelling and grammatical errors are likely due to EHR/dictation software use and do not reflect on the overall quality of patient care. Also, please note that the electronic time recorded on this note does not necessarily reflect the actual time of the patient encounter. Departure Diagnosis: Primary Impression: Acute suppurative tonsillitis Condition: Stable Additional Instructions: Thank you very much for allowing us to participate in your care. Your health and safety is our top priority at [facility]. The evaluation in the emergency department has been done to rule out an acute emergency. Chronic, [id number] conditions may have not been evaluated; therefore, you need to follow up with a primary care provider in the next 48h. If symptoms persist, worsen or new symptoms develop, then patient should return to the ED immediately. Call your primary care doctor TOMORROW for an appointment during the next 2-4 days and bring all the information provided. Have prescriptions filled and follow precisely the directions on the label. If the symptoms get worse and your provider is unavailable, return to the Emergency Department immediately. JENNA GORDON MD Sep 24, 2018 17:40
[2018-09-24] MEDS ORDERED: DEXAMETHASONE 10 MG/ML 1 ML INJ IM ONE (18:00)
== END 2018-09-24 18:16 | disposition home or self-care (01) ==
LOC: FTE 16:32
DX: J03.90 Acute tonsillitis, unspecified (principal); Z87.891 Personal history of nicotine dependence
CPT/HCPCS: 96372; J1100; Z7502